=== PATIENT | male | born 1990 | race Caucasian/White ===

== ENCOUNTER 2022-01-05 15:38 | Emergency (ER) | payer OTHER, SELFPAY ==
[2022-01-05 15:45] VITALS: BP 124/95; PULSE 93; RESP 16; TEMP 36.5; O2SAT 97
--- NOTE | 2022-01-05 16:23 | ED.URI ---
HPI - URI/Sore Throat General Chief Complaint: Upper Respiratory Infection Stated Complaint: burning in chest, cough, congestion,lightheaded Time Seen by Provider: 01/05/22 16:23 Source: patient History of Present Illness HPI Narrative: 31 year male, nonsmoker presents to ER with a 2 day history of -- dry cough -- nasal congestion -- burning sensation on taking a deep breath. No shortness of breath. No pleuritic chest pain. no fever/chills. no sore throat or odynophagia his roommate was diagnosed with bronchitis. MD elicited complaint: cough and rhinorrhea Onset (ago): day(s) ( started 2 days ago) Consistency: constant Description of mucous: clear Able to tolerate fluids by mouth: Yes Exacerbating factors: nothing Relieving factors: nothing Context: sick contacts Associated symptoms: denies other symptoms Treatments prior to arrival: none Related Data Allergies Allergy/AdvReac Type Severity Reaction Status Date / Time naproxen AdvReac Gastrointestinal Verified 01/05/22 15:52 Upset Review of Systems Review of Systems: All systems reviewed & are unremarkable except as noted in HPI and below ROS unobtainable: Yes unobtainable due to endotracheal tube Constitutional: Constitutional: Reports as per HPI and Reports no additional constitutional complaints Eyes: Eyes: Reports as per HPI and Reports no additional eye complaints ENT: Reports system reviewed and no additional complaints, except as documented and Reports nasal congestion Comments: Complains of ear wax Cardiovascular: Cardiovascular: Reports as per HPI and Reports no additional cardiovascular complaints Respiratory: Respiratory: Reports as per HPI, Reports no additional respiratory complaints and Reports cough Gastrointestinal: Gastrointestinal: Reports as per HPI and Reports no additional gastrointestinal complaints Genitourinary: Genitourinary: Reports no additional male genitourinary complaints and Reports as per HPI Musculoskeletal: Musculoskeletal: Reports no additional musculoskeletal complaints and Reports as per HPI Integumentary/Breasts: Skin/Breast: Reports system reviewed and no additional complaints, except as docu and Reports as per HPI Neurologic: Reports system reviewed and no additional complaints, except as documented and Reports as per HPI Psychiatric: Psychiatric: Reports no additional psychiatric complaints and Reports as per HPI Endocrine: Endocrine: Reports no additional endocrine complaints and Reports as per HPI Hematologic/Lymphatic: Hematologic/Lymphatic: Reports no additional hematologic/lymphatic complaints and Reports as per HPI Allergic/Immunologic: Allergic/Immunologic: Reports no additional allergic/immunologic complaints and Reports as per HPI Exam Const: General: no acute distress Orientation/consciousness: patient oriented x3 HENMT: Head: normal to inspection Other: bilateral ear wax Eyes: Conjunctivae: conjunctivae normal Pupils: Equal, round and reactive pupils present Neck: Neck: normal visual inspection and no lymphadenopathy Chest: Chest palpation & inspection: normal inspection of the chest and abnormal inspection of the chest Resp: Effort & Inspection: normal respiratory effort Auscultation: clear to auscultation bilaterally Cardio: Rate: regular rate Rhythm: regular rhythm GI: GI Palp: Yes Soft to palpation Other: no tenderness/ rigidity /rebound : Testes: Testes normal Back/Spine/Pelvis: Back: no CVA tenderness Skin: General skin exam: normal color Rashes: no rashes Neuro: General: patient oriented x3 and moves all extremities Extrem: General: normal to inspection and no pedal edema Psych: Appearance: grossly normal Mental Status: mental status grossly normal Affect: normal affect Course Vital Signs Vital signs: Vital Signs Temperature 36.5 C 01/05/22 15:45 Pulse Rate 93 01/05/22 15:45 Respiratory Rate 16 01/05/22 15:45 Blood Pressure 124/95 H
--- NOTE | 2022-01-05 17:15 | PC.NURSE ---
PT IS SITTING ON STRETCHER IN EXAM ROOM AT THIS TIME AWAITING RESULTS. ERP IRRIGATED EARS, SEE ASSESSMENT. PT TOLERATED WELL. PT IS PLAYING A GAME ON CELL PHONE WITHOUT DISTRESS. WILL CONTINUE TO MONITOR.
[2022-01-05 17:18] LABS: Influenza A QL RT-PCR Negative (Negative); Influenza B QL RT-PCR Negative (Negative); SARS-CoV-2 RNA PCR Negative (Negative)
[2022-01-05 17:48] VITALS: BP 124/85; PULSE 91; RESP 16; O2SAT 98
== END 2022-01-05 17:49 | disposition home or self-care (01) ==
PROVIDERS: Emergency Provider Internal Medicine Critical Care Medicine; PCP Nurse Practitioner Family
DX: J06.9 Acute upper respiratory infection, unspecified (principal); H61.23 Impacted cerumen, bilateral; Z20.822 Contact with and (suspected) exposure to COVID-19
CPT/HCPCS: 69209; 87502; 99283; C9803; U0003; U0005